=== PATIENT | female | born 1965 | race Caucasian/White ===

== ENCOUNTER 2022-08-02 09:50 | Outpatient (CLI) | payer BC, SELFPAY ==
--- NOTE | 2022-08-02 11:00 | NEURO_ITS ---
Impression: # Complains of tingling in both hands. # Mild evolving bilateral Carpal Tunnel Syndrome. # No ulnar neuropathy. # Normal needle/EMG exam. Motor Nerve Conduction Upper Extremities Median Nerve Conduction Velocity (m/sec) Terminal Latency (msec) Response Voltage(mV) Elbow-Wrist Wrist Elbow Wrist Right 54 3.2 2 2 Left 58 3.8 2 2 Ulnar Nerve Conduction Velocity (m/sec) Terminal Latency (msec) Response Voltage(mV) Above Elbow Below Elbow Wrist Above Elbow Below Elbow Wrist Right 53 2.2 4 7 Left 56 2.2 4 6 F-Wave Latency Median (ms) Ulnar (ms) Right 26.5 25.8 Left 26.9 26.3 Sensory Nerve Conduction Upper Extremities Median Nerve Stimulation Terminal Latency (msec) Wrist/Digit Response Voltage (uV) Wrist Right 4.0/4.2 16/7 Left 3.3/3.4 31/19 Ulnar Nerve Stimulation Terminal Latency (msec) Wrist/Digit Response Voltage (uV) Wrist Right 2.4 72 Left 2.2 48 Radial Nerve Terminal Latency (msec) Response Voltage(mV) Right 2.5 8 Left 2.0 22 Left Right Muscles Examined Fibrillation Fasciculation Scarcity Voltage Duration Left Right Left Right Left Right Left Right Left Right Deltoid Biceps X X Brachioradialis Triceps X X Pronator Teres X X Ext Indicis X X Ext Digitorum X X Abd Poll Brev X X 1st Dorsal Interosseus Paraspinals MTDD
== END 2022-08-02 09:51 | disposition home or self-care (01) ==
LOC: ANHNEURO 09:51
PROVIDERS: PCP Internal Medicine; Visit Provider Orthopaedic Surgery
DX: G56.03 Carpal tunnel syndrome, bilateral upper limbs (principal)
CPT/HCPCS: 95886; 95911

== ENCOUNTER 2022-09-23 09:01 | Outpatient (CLI) | payer BC, SELFPAY ==
--- NOTE | 2022-09-23 09:07 | ECG_ITS ---
Measurements Intervals [place] Rate: 65 P: 44 VA: 137 QRS: 10 QRSD: 85 T: 16 QT: 376 QTc: 393 Interpretive Statements SINUS RHYTHM Low voltage EKG NO PREVIOUS ECG AVAILABLE FOR COMPARISON Electronically Signed On 09-23-2022 22:15:32 CDT by Christina Harris M.D.
== END 2022-09-23 09:02 | disposition home or self-care (01) ==
LOC: ANHLAB 09:05
PROVIDERS: PCP Internal Medicine; Visit Provider Orthopaedic Surgery
DX: E78.5 Hyperlipidemia, unspecified (principal)
CPT/HCPCS: 93005

== ENCOUNTER 2022-09-26 01:07 | Day surgery (SDC) | payer BC, SELFPAY ==
[2022-09-19 15:51] VITALS: BMI 31.4
--- NOTE | 2022-09-19 15:56 | PC.NURSE ---
Report to the Outpatient Waiting Room, entrance under the green pavilion located off [facility], at time 11:30 on date 09/26/22. Planned Procedure Time: 1:30. Time changes happen often and if your time is changed the preop area will call you the afternoon before. - You and your visitor will be asked to self-screen and do not enter if you have any COVID symptoms. - A mask is optional within the hospital at this time. Patients may have clear liquids (water, carbonated beverages, clear teas, apple juice) until 3 hours prior to surgery with a maximum of 20 ounces. - No food from midnight until time of surgery Take the following medications with a SIP of water the morning of surgery: PAXIL, PROPRANOLOL DO NOT STOP ANY OF YOUR OTHER PRESCRIPTION MEDICATIONS PRIOR TO SURGERY?EXCEPT THE FOLLOWING Medications to discontinue per physician: MELOXICAM Date to take last dose: 09/19/22 Please no make-up, nail moldovan, hairspray, perfume, deodorant, or body powder the day of surgery. No jewelry (including any body piercings) or valuables the day of surgery, leave them at home. Please take a shower or bath the night before, or the morning of, surgery with an antibacterial soap. Wear comfortable, loose fitting clothing. - Jewelry must be removed prior to entering the operating room. Rings and piercings that are not removed may be cut off. - The hospital will not accept responsibility for valuables. - Please leave all valuables, including medications, at home the day of surgery. If you are going home after surgery, a licensed truck driver must drive you home. - NO public transportation without another adult if you receive anesthesia. - We recommend that an adult stay with you for 24 hours following discharge. - We also recommend that you do not drive, make important decision, drink alcoholic beverages, or take any drugs that were not prescribed by your health care provider for at least 24 hours after your discharge time. Follow any additional instructions given to you from your surgeon. If you or anyone in your household have experienced Covid symptoms in the past week, please notify your surgeon or the nurse liaison at the phone number below for possible testing. Telephone instructions given to PT Hailee JUAN and asked if any additional questions and then verbalized understanding. Patient advised to call surgeon office or pre surgery nurse liaison [phone] if any additional questions.
[2022-09-26] VITALS (8 sets, daily range): BP systolic 89–129; BP diastolic 51–77; PULSE 54–66; RESP 12–16; TEMP 36.2–36.6; O2SAT 99–100
[2022-09-26] MEDS: KETOROLAC 15 MG/ML VIAL (*BKC) IV PUSH (12:05)
[2022-09-26] MEDS: ACETAMINOPHEN 500 MG TABLET 1000 MG PO (12:05)
--- NOTE | 2022-09-26 13:49 | P.PNAN_ITS ---
Anes - Initial Pre Proc Eval Procedure: Operation Date: 09/26/22 13:30 Proposed Procedures p Right Carpal Tunnel Release - Salvador Zamudio MD Date/Time: 09/26/22 13:49 Surgeon: Salvador Zamudio MD Pre Op Diagnosis: Right Carpal Tunnel Syndrome Patient Data Age: 57 Gender: F Height: 1.57 m Weight: 75.8 kg Last Vital Signs Temp 97.9 F 09/26/22 11:38 Pulse 66 09/26/22 11:38 Resp 16 09/26/22 11:38 BP 117/75 09/26/22 11:38 Pulse Ox 99 09/26/22 11:38 O2 Del Method Room Air 09/26/22 11:38 Allergies Allergy/AdvReac Type Severity Reaction Status Date / Time STEROID Allergy Hives Uncoded 09/19/22 15:50 Home Medications Medication Instructions Recorded Confirmed Type ezetimibe 10 mg tablet 10 mg PO DAILY 05/23/22 09/19/22 History meloxicam 15 mg tablet 15 mg PO DAILY 05/23/22 09/19/22 History pantoprazole 40 mg tablet,delayed 40 mg PO QAM 05/23/22 09/19/22 History release paroxetine HCl 40 mg tablet 40 mg PO DAILY 05/23/22 09/19/22 History propranolol 40 mg tablet 40 mg PO Q12H 05/23/22 09/19/22 History hydrocodone 5 mg-acetaminophen 325 1 - 2 tablet PO Q4-6H PRN pain #30 09/26/22 Rx mg tablet tabs Patient hx anesthesia problems: none Family hx anesthesia problems: none Results Review: All pre-operative results and documents have been reviewed as part of the pre-operative evaluation. [facility] Surgical History Surgical History History of tonsillectomy 1984 LAP-BAND surgery status September of 2011 Family History Family History Father Heart disease Epilepsy Hypertension Mother Arthritis Glaucoma Sibling Cancer Grandparent Breast cancer Grandparent Diabetes mellitus Social History Social History Smoking status: Never smoker Alcohol intake: current Alcohol use details: RARE Substance use: never Substance use type: does not use Lack of Transportation: No Lack of Food: Never True Current Housing: I Have Housing Concerned About Future Housing: No Difficulty Paying Gas/Electric Bills: No Difficulty Paying for Meds: No Currently Unemployed: No Education: Master's Degree or Higher Difficulty w/ Childcare or Family Care: No Living arrangements: with family Spiritual care concerns: No Anes - Eval Final PreProcedure Day of Procedure 09/26/22 13:49 Patient weight: obese Heart: regular rate and rhythm Lungs: clear to auscultation Airway: Mallampati scale class II Neurological: alert and oriented Last oral intake: >/= 8 hours ASA classification: II Emergent: no Anesthetic plan: proceed Anesthesia type and monitoring: general LMA and standard monitoring Results Review: All pre-operative results and documents have been reviewed as part of the pre- operative evaluation. Informed Consent: The patient's anesthetic plan and its attendant risks and benefits were discussed with the patient/family/POA. Questions were solicited and answers provided to the satisfaction of the patient/family/POA.
[2022-09-26] MEDS: ceFAZolin 2 GM/D5W 50 ML 2 GM/50 ML BAG IVPB (14:00)
--- NOTE | 2022-09-26 14:05 | WPDHPUPDATE1 ---
History and Physical Update Update Date/Time: 09/26/22 14:05 History and Physical has been reviewed, including an updated exam of the patient. There are NO changes in the patient's condition. Risks, benefits, and alternatives have been discussed and questions answered. Patient agrees to proceed with procedure.
[2022-09-26] MEDS: BUPIVACAINE/EPINEPHRINE 0.5% 50 ML VIAL 10 ML INFILTRATE (14:29)
[2022-09-26] MEDS: LACTATED RINGERS 1,000 ML 30 ML IV CONT (14:41)
[2022-09-26] MEDS: oxyCODONE HCL (*CRX) 5 MG TAB IR PO (15:50)
--- NOTE | 2022-09-26 16:32 | W.PM.PROC2 ---
Procedure Note - Detailed Date of Procedure 09/26/22 Pre-op Diagnosis Right Carpal Tunnel Syndrome Post-op Diagnosis Same Procedure Performed Right Carpal tunnel release Surgeon Salvador Zamudio MD Anesthesia General Findings No abnormal findings. Description of Procedure Operative details. After sedation was administer, the hand was prepped and draped in the usual sterile fashion. The proposed incision was marked using typical anatomic landmarks. 4ML 0.5% Marcaine with epinephrine was injected along the incision line and at the distal forearm. The limb was exsanguinated and the tourniquet inflated to 250 millimeters of mercury. A longitudinal incision was taken sharply. Dissection was brought down to the transverse carpal ligament. Under direct vision the ligament was incised sharply. The proximal release was carried out with dissection scissors. The contents of the carpal canal were protected with a [place] elevator. The transverse carpal ligament was confirmed to be widely patent. The wound was closed with interrupted 3-0 Prolene suture. A sterile bulky dressing was placed. Patient was brought to the recovery room in stable condition. Estimated Blood Loss 1 Pathology None sent Complications No immediate complications Condition Stable Disposition PACU [facility] Billing Surgery - Charge Forward: Surgery Billing
== END 2022-09-26 16:47 | disposition home or self-care (01) ==
PROVIDERS: PCP Internal Medicine; Visit Provider Orthopaedic Surgery
PROC: (CPT 64721; principal; 2022-09-26 13:30)
DX: G56.01 Carpal tunnel syndrome, right upper limb (principal); Z98.84 Bariatric surgery status; E66.9 Obesity, unspecified; Z68.30 Body mass index [BMI] 30.0-30.9, adult
CPT/HCPCS: 64721; A9270; J0690; J1885; J2250; J2405; J2704; J3010; J7120

== ENCOUNTER 2022-10-26 00:55 | Day surgery (SDC) | payer BC, SELFPAY ==
[2022-10-17 14:18] VITALS: BMI 30.5
--- NOTE | 2022-10-17 14:23 | PC.NURSE ---
Report to the Outpatient Waiting Room, entrance under the green pavilion located off [facility], at time 0830 on date 10/26/22. Planned Procedure Time: 1030. Time changes happen often and if your time is changed the preop area will call you the afternoon before. - You and your visitor will be asked to self-screen and do not enter if you have any COVID symptoms. - A mask is optional within the hospital at this time. Patients may have clear liquids (water, carbonated beverages, clear teas, apple juice) until 3 hours prior to surgery with a maximum of 20 ounces. - No food from midnight until time of surgery Take the following medications with a SIP of water the morning of surgery: PAIN PILL IF NEEDED, PAXIL, PROPRANOLOL DO NOT STOP ANY OF YOUR OTHER PRESCRIPTION MEDICATIONS PRIOR TO SURGERY?EXCEPT THE FOLLOWING Medications to discontinue per physician: MELOXICAM Date to take last dose: 10/18/22 Please no make-up, nail colombian, hairspray, perfume, deodorant, or body powder the day of surgery. No jewelry (including any body piercings) or valuables the day of surgery, leave them at home. Please take a shower or bath the night before, or the morning of, surgery with an antibacterial soap. Wear comfortable, loose fitting clothing. - Jewelry must be removed prior to entering the operating room. Rings and piercings that are not removed may be cut off. - The hospital will not accept responsibility for valuables. - Please leave all valuables, including medications, at home the day of surgery. If you are going home after surgery, a licensed shuttle bus driver must drive you home. - NO public transportation without another adult if you receive anesthesia. - We recommend that an adult stay with you for 24 hours following discharge. - We also recommend that you do not drive, make important decision, drink alcoholic beverages, or take any drugs that were not prescribed by your health care provider for at least 24 hours after your discharge time. Follow any additional instructions given to you from your surgeon. If you or anyone in your household have experienced Covid symptoms in the past week, please notify your surgeon or the nurse liaison at the phone number below for possible testing. Telephone instructions given to PT Hailee JUAN and asked if any additional questions and then verbalized understanding. Patient advised to call surgeon office or pre surgery nurse liaison [phone] if any additional questions.
[2022-10-26] MEDS: ACETAMINOPHEN 500 MG TABLET 1000 MG PO (08:53)
[2022-10-26] MEDS: LACTATED RINGERS 1,000 ML 30 ML IV CONT ×2 (09:08→11:14)
[2022-10-26 09:10] VITALS: BP 99/72; PULSE 72; RESP 16; TEMP 36.5; O2SAT 98
--- NOTE | 2022-10-26 09:15 | WPDANESEPPF ---
Anes - Initial Pre Proc Eval Procedure: Operation Date: 10/26/22 10:30 Proposed Procedures p Left Carpal Tunnel Release - Salvador Zamudio MD Date/Time: 10/26/22 09:15 Surgeon: Salvador Zamudio MD Pre Op Diagnosis: Left Carpal Tunnel syndrome Patient Data Age: 57 Gender: F Height: 1.57 m Weight: 73.05 kg Last Vital Signs Temp 36.5 C 10/26/22 09:10 Pulse 72 10/26/22 09:10 Resp 16 10/26/22 09:10 BP 99/72 L 10/26/22 09:10 Pulse Ox 98 10/26/22 09:10 O2 Del Method Room Air 10/26/22 09:10 Allergies Allergy/AdvReac Type Severity Reaction Status Date / Time STEROID Allergy Hives Uncoded 10/17/22 14:17 Home Medications Medication Instructions Recorded Confirmed Type ezetimibe 10 mg tablet 10 mg PO DAILY 05/23/22 10/17/22 History meloxicam 15 mg tablet 15 mg PO DAILY 05/23/22 10/17/22 History pantoprazole 40 mg tablet,delayed 40 mg PO QAM 05/23/22 10/17/22 History release paroxetine HCl 40 mg tablet 40 mg PO DAILY 05/23/22 10/17/22 History propranolol 40 mg tablet 40 mg PO Q12H 05/23/22 10/17/22 History hydrocodone 5 mg-acetaminophen 325 1 - 2 tablet PO Q4-6H PRN pain #30 09/26/22 10/17/22 Rx mg tablet tabs Patient hx anesthesia problems: none Family hx anesthesia problems: none Results Review: All pre-operative results and documents have been reviewed as part of the pre-operative evaluation. [facility] Past Medical History Medical History (Updated 10/26/22 @ 09:16 by Darin Kaye MD) Hyperlipidemia Surgical History Surgical History History of carpal tunnel surgery of right wrist (~09/26/22) History of tonsillectomy 1984 LAP-BAND surgery status September of 2011 Family History Family History Father Heart disease Epilepsy Hypertension Mother Arthritis Glaucoma Sibling Cancer Grandparent Breast cancer Grandparent Diabetes mellitus Social History Social History Smoking status: Never smoker Alcohol intake: current Alcohol use details: RARE Substance use: never Substance use type: does not use Lack of Transportation: No Lack of Food: Never True Current Housing: I Have Housing Concerned About Future Housing: No Difficulty Paying Gas/Electric Bills: No Difficulty Paying for Meds: No Currently Unemployed: No Education: Master's Degree or Higher Difficulty w/ Childcare or Family Care: No Living arrangements: with family Spiritual care concerns: No Anes - Eval Final PreProcedure Day of Procedure 10/26/22 09:15 Patient weight: overweight Heart: regular rate and rhythm Lungs: clear to auscultation Airway: Mallampati scale class II Neurological: alert and oriented Last oral intake: >/= 8 hours ASA classification: II Emergent: no Anesthetic plan: proceed Anesthesia type and monitoring: general LMA and standard monitoring Results Review: All pre-operative results and documents have been reviewed as part of the pre-operative evaluation. Informed Consent: The patient's anesthetic plan and its attendant risks and benefits were discussed with the patient/family/POA. Questions were solicited and answers provided to the satisfaction of the patient/family/POA.
[2022-10-26] MEDS: KETOROLAC 15 MG/ML VIAL (*BKC) IV PUSH (10:02)
--- NOTE | 2022-10-26 10:19 | WPDHPUPDATE1 ---
History and Physical Update Update Date/Time: 10/26/22 10:19 History and Physical has been reviewed, including an updated exam of the patient. There are NO changes in the patient's condition. Risks, benefits, and alternatives have been discussed and questions answered. Patient agrees to proceed with procedure.
[2022-10-26] MEDS: ceFAZolin 2 GM/D5W 50 ML 2 GM/50 ML BAG IVPB (10:22)
--- NOTE | 2022-10-26 10:30 | W.PM.PROC2 ---
Procedure Note - Detailed Date of Procedure 10/26/22 Pre-op Diagnosis Left Carpal Tunnel syndrome Post-op Diagnosis Same Procedure Performed Left Carpal tunnel release Surgeon Salvador Zamudio MD Anesthesia General Description of Procedure Operative details. After sedation was administer, the hand was prepped and draped in the usual sterile fashion. The proposed incision was marked using typical anatomic landmarks. 4ML 0.5% Marcaine with epinephrine was injected along the incision line and at the distal forearm. The limb was exsanguinated and the tourniquet inflated to 250 millimeters of mercury. A longitudinal incision was taken sharply. Dissection was brought down to the transverse carpal ligament. Under direct vision the ligament was incised sharply. The proximal release was carried out with dissection scissors. The contents of the carpal canal were protected with a [place] elevator. The transverse carpal ligament was confirmed to be widely patent. The wound was closed with interrupted 3-0 Prolene suture. A sterile bulky dressing was placed. Patient was brought to the recovery room in stable condition. Estimated Blood Loss 1 Tourniquet Time 5 Pathology None sent Complications No immediate complications Condition Stable Disposition PACU [facility] Billing Surgery - Charge Forward: Surgery Billing
[2022-10-26] MEDS: BUPIVACAINE/EPINEPHRINE 0.25% 50 ML VIAL 10 ML INFILTRATE (10:41)
[2022-10-26 11:00] VITALS: BP 86/42; PULSE 63; RESP 14; O2SAT 96
[2022-10-26 11:30] VITALS: BP 97/54; PULSE 61; RESP 14; O2SAT 95
[2022-10-26 11:55] VITALS: BP 100/59
== END 2022-10-26 12:15 | disposition home or self-care (01) ==
PROVIDERS: PCP Internal Medicine; Visit Provider Orthopaedic Surgery
PROC: (CPT 64721; principal; 2022-10-26 10:30)
DX: G56.02 Carpal tunnel syndrome, left upper limb (principal)
CPT/HCPCS: 64721; A9270; J0690; J1885; J2250; J2405; J2704; J3010; J7120